=== PATIENT | female | born 1995 | race Caucasian/White ===

== ENCOUNTER 2017-01-13 21:53 | Emergency (ER) | payer MEDICAID ==
[2017-01-13 22:30] VITALS: BP 134/92
[2017-01-13] MEDS ORDERED: diphenhydrAMINE 25 MG Cap PO ONE (23:28)
[2017-01-13] MEDS ORDERED: Alum Hydrox/Mag Hydrox/Simeth 15 ML, Lidocaine 2% 15 ML PO ONE ×2 (23:29)
--- NOTE | 2017-01-13 23:37 | EDM.PDOC ---
ED HPI GENERAL MEDICAL PROBLEM - General Chief Complaint: Abdominal Pain Stated Complaint: ABD PAIN Time Seen by Provider: 01/13/17 22:10 Source of Information: Reports: Patient History Limitations: Reports: No Limitations - History of Present Illness INITIAL COMMENTS - FREE TEXT/NARRATIVE: abdominal pain; this is a 21 year old female present to ER for evaluation of sudden onset of abdominal pain, now resolved. She reports self diagnosed with IBS, but had a soft painful bowel movement at 3:30pm today. She is has a lot of stressors in her life, stopped going to college, is taking a "sabbatical". Reports a lot of things are going on right now. Denies any thoughts of harm to self or others. felt herself being flushed this evening, but no fevers or chills denies any nausea, vomiting, diarrhea, constipations or rash. Onset: Today Duration: Resolved Prior to Arrival Location: Reports: Abdomen Quality: Reports: Ache, Sharp Severity: Moderate Improves with: Reports: None Worsens with: Reports: None Associated Symptoms: Reports: No Other Symptoms Epigastric Pain Score (Numeric/FACES): 1 - Related Data Allergies Allergy/AdvReac Type Severity Reaction Status Date / Time No Known Allergies Allergy Verified 01/13/17 23:10 Home Meds: Home Meds NK [No Known Home Meds] 01/13/17 [History] Past Medical History - Past Health History Medical/Surgical History: Denies Medical/Surgical History Social & Family History - Tobacco Use Smoking Status *Q: Current Every Day Smoker Years of Tobacco use: 6 Packs/Tins Daily: 0.5 - Caffeine Use Caffeine Use: Reports: Soda - Recreational Drug Use Recreational Drug Use: No ED ROS GENERAL - Review of Systems Review Of Systems: See Below Constitutional: Reports: No Symptoms HEENT: Reports: No Symptoms Respiratory: Reports: No Symptoms Cardiovascular: Reports: No Symptoms, Palpitations GI/Abdominal: Reports: Abdominal Pain (resolved prior to arrival, now with a dull ache in upper abdomen. ) : Reports: No Symptoms Musculoskeletal: Reports: No Symptoms Skin: Reports: No Symptoms Neurological: Reports: No Symptoms Psychiatric: Reports: Other (life stress) Hematologic/Lymphatic: Reports: No Symptoms Immunologic: Reports: No Symptoms ED EXAM, GI/ABD - Physical Exam Exam: See Below Exam Limited By: No Limitations General Appearance: Alert, WD/WN, No Apparent Distress Eyes: Bilateral: Normal Appearance, EOMI Ears: Normal External Exam, Normal Canal, Hearing Grossly Normal, Normal TMs Nose: Normal Inspection, Normal Mucosa, No Blood Throat/Mouth: Normal Inspection, Normal Lips, Normal Teeth, Normal Gums, Normal Oropharynx, Normal Voice, No Airway Compromise Head: Atraumatic, Normocephalic Neck: Normal Inspection, Supple, Non-Tender, Full Range of Motion Respiratory/Chest: No Respiratory Distress, Lungs Clear, Normal Breath Sounds, No Accessory Muscle Use, Chest Non-Tender Cardiovascular: Normal Peripheral Pulses, Regular Rate, Rhythm, No Edema, No Gallop, No JVD, No Murmur, No Rub GI/Abdominal Exam: Normal Bowel Sounds, Soft, Non-Tender, No Organomegaly, No Distention, No Abnormal Bruit, No Mass, Pelvis Stable (Female) Exam: Deferred Rectal (Female) Exam: Deferred Back Exam: Normal Inspection, Full Range of Motion, NT Extremities: Normal Inspection, Normal Range of Motion, Non-Tender, Normal Capillary Refill, No Pedal Edema Neurological: Alert, Oriented, Normal Cognition, Normal Gait, No Motor/Sensory Deficits Psychiatric: Normal Affect, Normal Mood Skin Exam: Warm, Dry, Intact, Normal Color, No Rash Lymphatic: No Adenopathy Course - Vital Signs Last Recorded V/S: Last Vital Signs Temp 36.4 C 01/13/17 22:29 Pulse 88 01/13/17 22:29 Resp 16 01/13/17 22:29 BP 134/92 H 01/13/17 22:29 Pulse Ox 97 01/13/17 22:29 - Orders/Labs/Meds Labs: Laboratory Tests 01/13/17 01/13/17 Range/Units 22:27 22:27 Urine Color Yellow Urine Appearance Clear Urine pH 6.0 (4.5-8.0) Ur Specific [place] 1.015 (1.008-1.030) Urine Protein Negative (NEGATIVE) mg/dL Urine Glucose (UA) Normal (NEGATIVE) mg/dL Urine Ketones Negative (NEGATIVE) mg/dL Urine Occult Blood Negative (NEGATIVE) Urine Nitrite Negative (NEGATIVE) Urine Bilirubin Negative (NEGATIVE) Urine Urobilinogen Normal (NORMAL) mg/dL Ur Leukocyte Esterase Negative (NEGATIVE) Urine RBC 0-5 (0-5) Urine WBC 0-5 (0-5) Ur Epithelial Cells Few Amorphous Sediment Not seen Urine Bacteria Few Urine Mucus Not seen Urine HCG, Qual Negative Meds: Medications Discontinued Medications Generic Name Dose Route Start Last Admin Trade Name Cal PRN Reason Stop Dose Admin Al Hydroxide/Mg Hydroxide 15 0 ml 01/13/17 23:29 01/13/17 23:37 ml/ Lidocaine HCl 15 ml PO 01/13/17 23:30 30 ml ONETIME ONE Administration Diphenhydramine HCl 25 mg 01/13/17 23:28 01/13/17 23:37 Benadryl PO 01/13/17 23:29 25 mg ONETIME ONE Administration - Re-Assessments/Exams Free Text/Narrative Re-Assessment/Exam: 01/13/17 labs negative for infection or will give GI cocktail for epigastric pain will give benadryl 25mg po once for stress advise to follow up with Primary Care for recheck, discussed going to counselling for stress or mental health. Ms. Gonzalez agrees with plan of care Departure - Departure Time of Disposition: 23:53 Disposition: Home, Self-Care 01 Condition: Good Clinical Impression: Intermittent epigastric abdominal pain, Stress-related symptoms - Discharge Information Instructions: Abdominal Pain, Adult, [id number] Referrals: PCP,None [Primary Care Provider] - Forms: ED Department Discharge Care Plan Goals: Intermittent Epigastric Pain Stress related symptoms -GI cocktail and Benadryl given in ER -labs;urine no infection noted, urine negative -advise to follow up with Primary Care Provider for recheck Return to Clinic or ER if symptoms worse or not improved - Problem List & Annotations (1) Stress-related symptoms SNOMED Code(s): 797541238 Code(s): F43.9 - REACTION TO SEVERE STRESS, UNSPECIFIED Status: Acute Priority: Medium Current Visit: Yes (2) Intermittent epigastric abdominal pain SNOMED Code(s): 41677888, 844424144 Code(s): R10.13 - EPIGASTRIC PAIN Status: Acute Priority: Medium Current Visit: Yes - Problem List Review Problem List Initiated/Reviewed/Updated: Yes - Assessment/Plan Plan: Intermittent Epigastric Pain Stress related symptoms -GI cocktail and Benadryl given in ER -labs;urine no infection noted, urine negative -advise to follow up with Primary Care Provider for recheck Return to Clinic or ER if symptoms worse or not improved
== END 2017-01-13 23:58 | disposition home or self-care (01) ==
LOC: JP.ED 21:53
DX: R10.13 Epigastric pain (principal); F43.9 Reaction to severe stress, unspecified; F17.210 Nicotine dependence, cigarettes, uncomplicated
CPT/HCPCS: 81001; 81025; 99284; A9270